=== PATIENT | female | born 1985 | race Caucasian/White ===

== ENCOUNTER 2023-03-04 06:32 | Day surgery (SDC) | payer OTHER ==
[2023-03-04] MEDS ORDERED: Lactated Ringers 1,000 ML IV ONE ×2 (06:50→09:32)
[2023-03-04] MEDS ORDERED: CEFAZOLIN 2 GM-D5W BAG** 2 GM/50 ML ML IV ONE (07:05)
[2023-03-04 07:09] LABS: HCG URINE TEST NEGATIVE (NEGATIVE)
[2023-03-04] MEDS ORDERED: CEFAZOLIN 2 GM-D5W BAG** 2 GM/50 ML ML IV SCH (07:30)
[2023-03-04] MEDS ORDERED: Lactated Ringers 1,000 ML IV SCH (07:30)
[2023-03-04] MEDS ORDERED: Xylocaine 1% Vial 30 ML PF IJ ONE (07:31)
[2023-03-04] MEDS ORDERED: Marcaine Mpf 0.5% Vial 30 Ml ONE (07:31)
[2023-03-04 07:35] LABS: Hematocrit 39.4 % (35-47); Hemoglobin 13.3 g/dL (12.0-16.0); Mean Cell Volume 95.9 fL (78-100); Mean Corpuscular Hemoglobin 32.4 pg (26-32); Mean Corpuscular Hgb Concent. 33.8 g/dL (32-36); Mean Platelet Volume 10.6 fL (7.5-11.0); Platelet Count 192 x10^3/uL (150-450); Red Blood Count 4.11 x10^6/uL (4.1-5.4); Red Cell Distribution Width 12.1 % (11.5-14.0); White Blood Count 3.8 x10^3/uL (4.0-10.5)
[2023-03-04 07:48] LABS: ALBUMIN 4.2 g/dL (3.5-5.0); ALKALINE PHOSPHATASE 46 U/L (38-126); ANION GAP 13.9 MEQ/L (5-15); BLOOD UREA NITROGEN 17 mg/dL (7-17); CHLORIDE 111 mmol/L (98-107); Calcium 9.4 mg/dL (8.4-10.2); Carbon Dioxide 17 mmol/L (22-30); Creatinine 1 1.03 mg/dL (0.52-1.04); EST GLOMERULAR FILTRATION RATE > 60.0 ML/MIN; Glucose 92 mg/dL (74-106); Potassium 3.7 mmol/L (3.5-5.1); SGOT/AST 20 U/L (14-36); SGPT/ALT 15 U/L (0-35); SODIUM 139 mmol/L (137-145); Total Protein 7.1 g/dL (6.3-8.2)
[2023-03-04] MEDS ORDERED: DIPRIVAN 200 MG/20 ML IV ONE (08:12)
[2023-03-04] MEDS ORDERED: Versed 2 MG/2 ML Injection ONE (08:12)
[2023-03-04] MEDS ORDERED: SUBLIMAZE 100 MCG/2 ML ONE ×2 (08:14→09:52)
[2023-03-04] MEDS ORDERED: Quelicin Fliptop 200 MG/10 ML ONE (08:14)
[2023-03-04] MEDS ORDERED: Xylocaine-Mpf 2% 5 Ml Vial ONE (08:16)
[2023-03-04] MEDS ORDERED: ROBINUL ONE (08:17)
[2023-03-04] MEDS ORDERED: ATROPINE SULFATE 1MG ONE (08:19)
[2023-03-04] MEDS ORDERED: OFIRMEV 100 ML IV ONE (08:35)
[2023-03-04] MEDS ORDERED: Decadron 4 MG INJ ONE (08:37)
[2023-03-04] MEDS ORDERED: Zofran 4 MG/2 ML VIAL ONE (09:05)
--- NOTE | 2023-03-04 10:43 | XRAY ---
Indication: Right 3rd metatarsal arthroplasty, 2nd-4th hammertoe correction, 2nd metatarsal Claudia osteotomy, and plantar plate repair. Intraoperative fluoroscopy provided for 1 minute 12 seconds. 7 digital spot images submitted for interpretation ultimately demonstrates fusion 2nd-4th toes and 2nd metatarsal head Claudia osteotomy all with intact hardware. Correlate with intraoperative findings/report.
[2023-03-04 12:06] VITALS: O2SAT 100
[2023-03-04 12:25] VITALS: BP 126/71; PULSE 52
--- NOTE | 2023-03-04 12:39 | XRAY ---
One minute and 12 seconds of fluoroscopy was used in surgery for a right 3rd metatarsal arthroplasty, 2nd-4th hammertoe correction, 2nd metatarsal Claudia osteotomy, and plantar plate repair.
--- NOTE | 2023-03-04 13:51 | OP ---
SURGERY DATE/TIME: 03/04/2023 0810 PREOPERATIVE DIAGNOSES: 1) Hammer toes 2, 3, 4 and 5. 2) Freiberg's infarction third metatarsal. 3) Metatarsal deformity. 4) Plantar plate rupture third metatarsophalangeal joint. 5) Neuroma third interspace. 6) Right foot pain. POSTOPERATIVE DIAGNOSES: 1) Hammer toes 2, 3, 4 and 5. 2) Freiberg's infarction third metatarsal. 3) Metatarsal deformity. 4) Plantar plate rupture third metatarsophalangeal joint. 5) Neuroma third interspace. 6) Right foot pain. PROCEDURES: 1) Repair of hammer toes 2, 3, 4 and 5. 2) Metatarsal osteotomy/arthroplasty with dermal allograft. 3) Claudia osteotomy second metatarsal. 4) Extensor tendon lengthening 3, 4 and 5. 5) Capsulotendinous balancing 2 and 3. 6) Plantar plate repair third metatarsophalangeal joint. SURGEON: Dalton Butler DPM. MANAGER OUTPATIENT: None. ANESTHESIA: General plus intraoperative local consisting of 30 cc of 1:1 mixture of 1% lidocaine plain and 0.5% bupivacaine plain injected in an ankle block-type fashion preoperatively. HEMOSTASIS: Ankle tourniquet set to 250 mm of Mercury for 115 total tourniquet minutes. ESTIMATED BLOOD LOSS: Approximately 10 cc. MATERIALS: 2.5 x 40 headless compression screws x2, 2.5 x 32 headless compression screw, 2.0 x 14 headed partially threaded compression screw and 2 x 2 dermal allograft for arthroplasty, 4-0 Monocryl, 4-0 Nylon, 2-0 Vicryl. INJECTABLES: 30 cc of 1:1 mixture of 1% lidocaine plain and 0.5% bupivacaine plain injected in an ankle block-type fashion to the right lower extremity. INDICATIONS FOR PROCEDURE: Lori is a very pleasant 37-year-old female who presented to my office with concerns of pain to the third metatarsophalangeal joint primarily as well as pain associated with hammer toes to the right foot. The patient presented and x-rays were taken demonstrating an abnormality to the third metatarsal head this was as a result of an injury that occurred where the metatarsal was fractured approximately one year ago. The patient had some pain associated with it until recent retrauma set it back off and a lot of the pain returned. This was attempted to be dealt with by conservative management with injection and shoe gear which helped temporarily however not for a very long time. The patient returned to my office with concerns of return of the pain. She wished at that time to proceed with surgical intervention. 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 The patient understands all risks, benefits and complications of surgical intervention including but not limited to infection, hematoma, seroma, possibility of rejection of graft, possibility of hardware failure and need for removal of hardware and possible need for revision at a later date. No guarantees were provided as to the surgical outcome. It is with that we decided to proceed. DESCRIPTION OF PROCEDURE AND FINDINGS: The patient was brought into the OR and placed on the OR table in the supine position. At this time general anesthesia was administered and ankle tourniquet was applied to the patient's right ankle and the tourniquet was set to 250 mm of Mercury. At this time the right foot was prepped and draped in the typical sterile fashion and lowered onto the surgical field. Attention was first directed to the dorsal aspect of the third metatarsophalangeal joint. An Esmarch was utilized to exsanguinate the foot. A 15 blade was utilized to make an incision down to the level of the extensor tendon. Careful dissection was carried down making sure not to damage any neurovascular structures. The extensor tendon was lengthened utilizing Z-osteotomy and this exposed the metatarsal head after capsular dissection. From that standpoint the metatarsal head was inspected demonstrating a flattened and osteoarthritic appearance with joint mice. On range of motion there was crepitation. At this time a conical reamer was utilized on hand power to denude what remaining cartilage was left. From that standpoint, this was flushed with copious amounts of sterile saline. A dermal allograft was sutured off-site measuring approximately 1.5 x 0.8 mm, this was carried from underneath the metatarsal head through 2 mm drill hole and pulled to the bottom of the joint and then secured to the dorsal aspect of the joint with the same BroadBand suture. From that standpoint, the range of motion was checked and deemed to be adequate without any crepitation and maintaining the joint space. The extensor tendon was then repaired utilizing 2-0 Vicryl and deemed to be in an adequate position. At this time, an extensor tendon lengthening took place for third, fourth and fifth metatarsophalangeal joint. The decision was made after extending the extensor tendon to proceed with Claudia to the second metatarsal due to the significant floating of the second toe which dropped the toe into sagittal plane more suitable. From that standpoint, a 14 x 2 mm headed partially threaded screw was utilized to compress the Claudia osteotomy. At this time the same dissection was carried out for the second, third, fourth digits at the proximal interphalangeal joint. The head of the proximal phalanx and the base of the middle phalanx were resected utilizing 18 mm sagittal saw. A K-wire was then retrograded out of the tip of the distal phalanx and then anterograded down the longitudinal cortex of the proximal phalanx. Positon was checked on AP, oblique and lateral for all of these screws. Two - 4.0 x 2.5 headless compression screws were utilized for the second and third digit and the fourth digit had a 2.5 x 32 headless compression screw introduced from the distal tip this was once again checked on multiple planes and deemed in adequate position. At this time attention was directed to the fifth digit where a derotational arthroplasty was performed making incision through the skin and resecting the head of the proximal phalanx out in order to get enough contracture out of the toe. From this standpoint, the skin was utilized to correct the position of the toe. A capsulotomy had to be performed at this time. Following this for the second and the third digits, some capsulotendinous balancing took place utilizing 4-0 Monocryl to resect the medial capsule and perform a capsulorrhaphy to the lateral aspect of the joint. In everted position the toes were checked under fluoroscopy and deemed to be adequate. The remaining tendons were repaired utilizing 2-0 Vicryl. The subcutaneous skin was coapted utilizing 4-0 Monocryl in a buried-type fashion and 4-0 Nylon was utilized in a horizontal mattress-type fashion to coapt the skin edges. A dressing consisting of Betadine, Adaptic, 4x4, Kerlix and MARTI was applied to the patient's right lower extremity. Following this, the patient was reversed from anesthesia and returned to the postoperative anesthesia care unit with vital signs stable and vascular status intact. The patient handled the anesthesia as well as procedure without significant complications. Postoperative orders as indicated in the patient's discharge chart.
== END 2023-03-04 12:32 | disposition home or self-care (01) ==
LOC: SDC 06:32
PROVIDERS: ATTEND Podiatrist Foot & Ankle Surgery
DX: M20.41 Other hammer toe(s) (acquired), right foot (principal); M92.71 Juvenile osteochondrosis of metatarsus, right foot; M21.961 Unspecified acquired deformity of right lower leg; M79.671 Pain in right foot; S93.524A Sprain of metatarsophalangeal joint of right lesser toe(s), initial encounter; G57.61 Lesion of plantar nerve, right lower limb
CPT/HCPCS: 28272; 28285; 28308; 36415; 73630; 76000; 80053; 81025; 85027; 93005; C1713; J0330; J0461; J0690; J1100; J2001; J2250; J2405; J2704; J3010; Q4126

== ENCOUNTER 2023-12-01 11:52 | Day surgery (SDC) | payer OTHER ==
[2023-12-01] MEDS ORDERED: Depo-Medrol 40 MG/ML IM ONE (11:53)
[2023-12-01] MEDS ORDERED: Sodium Chloride 0.9(Preservative Free) 10 ML IJ ONE (11:53)
[2023-12-01] MEDS ORDERED: LIDOCAINE HCL 1% 50 MG/5 ML VL PF IJ ONE (11:53)
[2023-12-01 12:54] LABS: HCG URINE TEST NEGATIVE (NEGATIVE)
[2023-12-01] MEDS ORDERED: DIPRIVAN 200 MG/20 ML IV ONE (13:35)
[2023-12-01] MEDS ORDERED: Lactated Ringers 1,000 ML IV ONE (13:49)
--- NOTE | 2023-12-01 15:05 | XRAY ---
Indication: Lumbar STANFORD. Intraoperative fluoroscopy provided for 15 seconds. 2 digital spot images submitted for interpretation demonstrates posterior needle tip projecting posterior to L4-L5 interspace. Small amount of contrast injected for needle tip placement. Correlate with intraoperative findings/report.
--- NOTE | 2023-12-01 15:09 | XRAY ---
15 seconds of fluoroscopy was used in surgery for a lumbar STANFORD.
== END 2023-12-01 14:09 | disposition home or self-care (01) ==
LOC: SDC-PAIN 11:52
PROVIDERS: ATTEND Psychiatry & Neurology Pain Medicine
DX: M54.16 Radiculopathy, lumbar region (principal)
CPT/HCPCS: 62323; 72100; 77003; 81025; J1010; J2001; J2704; Q9966; J1030